=== PATIENT | female | born 1975 | race African-American/Black ===

== ENCOUNTER 2024-02-10 23:18 | Inpatient (IN) | payer OTHER, MEDICAID ==
[~2024-02-10] VITALS: Ht 170.2 cm; Wt 85.0 kg
[2024-02-10 23:39] VITALS: O2SAT 100
[2024-02-11] MEDS: KETOROLAC 15MG/ML VIAL IV ONE (00:37)
[2024-02-11] MEDS: LIDOCAINE 5% PATCH TOP ONE (00:37)
[2024-02-11 03:37] LABS: BASOPHILS % 1.1 % (0.0-2.0); DIFFERENTIAL COMMENT 0; EOSINOPHILS % 1.1 % (0.0-5.0); HEMATOCRIT. 33.3 % (36.0-48.0); HEMOGLOBIN. 10.8 g/dL (12.0-16.0); LYMPHOCYTES % 29.7 % (20.0-50.0); MEAN CORPUSCULAR HEMOGLOBIN 24.7 pg (28.0-32.0); MEAN CORPUSCULAR HGB CONC 32.3 g/dL (31.0-37.0); MEAN CORPUSCULAR VOLUME 76.5 fL (81.0-99.0); MEAN PLATELET VOLUME 9.4 fl (7.4-10.4); MONOCYTES % 4.6 % (2.0-8.0); NEUTROPHILS % 63.5 % (40.0-76.0); PLATELET 244 x1000/uL (130-400); RED BLOOD CELL COUNT 4.35 mill/uL (4.2-5.4); RED CELL DISTRIBUTION WIDTH 16.3 % (11.6-14.6)
[2024-02-11 03:47] VITALS: BP 170/81; PULSE 69; RESP 17; TEMP 36.55848; O2SAT 98
[2024-02-11 03:47] LABS: CHLORIDE 108 mEq/L (98-107); SODIUM 140 mEq/L (136-145)
[2024-02-11 03:48] LABS: CALCIUM 9.1 mg/dL (8.7-10.4); CARBON DIOXIDE 27 mEq/L (21-32)
[2024-02-11 03:53] LABS: CREATININE 0.8 mg/dL (0.6-1.0); GLUCOSE 137 mg/dL (70-105); UREA NITROGEN BLOOD 15 mg/dL (9-23)
[2024-02-11 04:28] LABS: TROPONIN I HIGH SENSITIVITY 96 ng/L (3.0-34)
[2024-02-11 04:54] LABS: TROPONIN I HIGH SENSITIVITY 96 ng/L (3.0-34)
[2024-02-11] MEDS ORDERED: IPRATROPIUM/ALBUTEROL 0.5-3(2.5)MG/3ML NEB NEB PRN (05:45)
[2024-02-11] MEDS ORDERED: HYDROCODONE/ACETAMINOPHEN 5/325MG TABLET PO PRN (05:45)
[2024-02-11] MEDS ORDERED: DOCUSATE SODIUM 100MG CAPSULE PO PRN (05:45)
[2024-02-11] MEDS ORDERED: ACETAMINOPHEN 325MG TABLET PO PRN (05:45)
[2024-02-11] MEDS ORDERED: CLONIDINE 0.1MG TABLET PO PRN (05:45)
[2024-02-11] MEDS ORDERED: DEXTROSE 50% WATER 50ML SYRINGE IV PRN (05:45)
[2024-02-11] MEDS ORDERED: ZOLPIDEM TARTRATE 5MG TABLET PO PRN (05:45)
[2024-02-11] MEDS ORDERED: ONDANSETRON HCL 4MG/2ML INJ IV PRN (05:45)
[2024-02-11] MEDS ORDERED: BLOOD SUGAR DIAGNOSTIC STRIP TEST SCH (06:45)
[2024-02-11] MEDS ORDERED: INSULIN LISPRO 100 UNITS/ML SUBCUT SCH (07:15)
[2024-02-11] MEDS ORDERED: ENOXAPARIN 40MG/0.4ML SYR SUBCUT SCH (09:00)
== END 2024-02-11 07:07 | disposition left against medical advice (07) | DRG 313 ==
LOC: ER 23:18 → 5WST 02-11 02:52
PROVIDERS: ADMIT Internal Medicine; ATTEND Internal Medicine
DX: R07.89 Other chest pain (principal); E11.9 Type 2 diabetes mellitus without complications; M54.2 Cervicalgia; I11.9 Hypertensive heart disease without heart failure; Z95.1 Presence of aortocoronary bypass graft; Z53.29 Procedure and treatment not carried out because of patient's decision for other reasons
CPT/HCPCS: 36415; 71045; 80048; 83880; 84484; 85025; 99285; J1885

== ENCOUNTER 2024-04-14 22:50 | Inpatient (IN) | payer OTHER, MEDICAID ==
[~2024-04-14] VITALS: Ht 165.1 cm; Wt 89.4 kg
[2024-04-14] MEDS: ALBUTEROL (0.083%) 2.5MG/3ML NEB HHN STA (00:30)
[2024-04-14] MEDS: LORAZEPAM 2MG/ML INJ IV ONE (23:20)
[2024-04-14 23:23] LABS: BASOPHILS % 1.3 % (0.0-2.0); DIFFERENTIAL COMMENT 0; EOSINOPHILS % 1.1 % (0.0-5.0); HEMOGLOBIN. 11.3 g/dL (12.0-16.0); LYMPHOCYTES % 25.6 % (20.0-50.0); MEAN CORPUSCULAR HEMOGLOBIN 24.2 pg (28.0-32.0); MEAN CORPUSCULAR HGB CONC 31.3 g/dL (31.0-37.0); MEAN CORPUSCULAR VOLUME 77.3 fL (81.0-99.0); MEAN PLATELET VOLUME 9.1 fl (7.4-10.4); MONOCYTES % 3.4 % (2.0-8.0); NEUTROPHILS % 68.6 % (40.0-76.0); PLATELET 352 x1000/uL (130-400); RED BLOOD CELL COUNT 4.65 mill/uL (4.2-5.4)
[2024-04-14 23:25] LABS: CHLORIDE 110 mEq/L (98-107); POTASSIUM 3.4 mEq/L (3.5-5.1); SODIUM 140 mEq/L (136-145)
[2024-04-14 23:26] LABS: CALCIUM 8.4 mg/dL (8.7-10.4); CARBON DIOXIDE 23 mEq/L (21-32)
[2024-04-14 23:31] LABS: CREATININE 0.9 mg/dL (0.6-1.0); GLUCOSE 228 mg/dL (70-105); UREA NITROGEN BLOOD 13 mg/dL (9-23)
[2024-04-14 23:49] LABS: TROPONIN I HIGH SENSITIVITY 54 ng/L (3.0-34)
[2024-04-15] VITALS (8 sets, daily range): PULSE 70–144; RESP 20–26; O2SAT 90–100
[2024-04-15] MEDS: MIDAZOLAM HCL 2 MG/2 ML VIAL IV NR (00:25)
[2024-04-15] MEDS: IPRATROPIUM BROMIDE (0.02%) 0.5MG/2.5ML NEB HHN STA (00:30)
[2024-04-15] MEDS ORDERED: MIDAZOLAM HCL 100 MG in DEXT 5% WATER 80 ML IV ONE (00:45)
[2024-04-15] MEDS: ROCURONIUM BROMIDE 10MG/ML VIAL 5ML IV ONE (01:27)
[2024-04-15] MEDS: CEFTRIAXONE 1GM/50ML 50 ML IV NR (01:46)
[2024-04-15] MEDS: MIDAZOLAM 100MG/100ML PREMIX IV PRN (01:47)
[2024-04-15] MEDS: PROPOFOL 10MG/ML 100ML 100 ML IV ONE (01:48)
[2024-04-15 02:19] LABS: BG BASE EXCESS -7.1 mmol/L (-2.0-3.0); BG CARBOXYHEMOGLOBIN 2.9 % (0.5-1.5); BG DEOXYHEMOGLOBIN 26.9 % (0.0-5.0); BG FRACTION INSPIRED OXYGEN 100; BG HCO3 ACT 20.2 mmol/L (21.0-28.0); BG METHEMOGLOBIN 0.3 % (0.5-1.5); BG OXYGEN SATURATION 72.2 % (94.0-98.0); BG OXYHEMOGLOBIN 69.9 % (94.0-98.0); BG PCO2 47.6 mmHg (32.0-45.0); BG PH 7.245 (7.350-7.450); BG PO2 44.8 mmHg (83.0-108.0); BG SAMPLE SITE LEFT RADIAL; BG TOTAL HEMOGLOBIN 13.2 g/dL (12.0-16.0); BG VENT MODE VENT - AC
[2024-04-15] MEDS: AZITHROMYCIN 500MG/250ML 250 ML IV NR (02:22)
[2024-04-15 02:35] LABS: ALANINE AMINOTRANSFERASE 24 IU/L (10-49); ALBUMIN 4.2 g/dL (3.2-4.8); ASPARTATE AMINOTRANSFERASE 21 IU/L (<34); BILIRUBIN TOTAL 0.4 mg/dL (0.1-1.0)
[2024-04-15 03:01] LABS: BILIRUBIN DIRECT < 0.1 mg/dL (<=3.0)
[2024-04-15 03:04] LABS: LACTIC ACID 3.6 mmol/L (0.4-2.0); TROPONIN I HIGH SENSITIVITY 231 ng/L (3.0-34)
[2024-04-15] MEDS ORDERED: ONDANSETRON HCL 4MG/2ML INJ IV PRN (03:45)
[2024-04-15] MEDS ORDERED: ACETAMINOPHEN 650MG/20.3ML UDC GT PRN (03:45)
[2024-04-15] MEDS ORDERED: POTASSIUM CHLORIDE 20 MEQ in DEXT 5% WATER 90 ML IV ONE (03:45)
[2024-04-15] MEDS ORDERED: PROPOFOL 10MG/ML 100ML 100 ML IV PRN (03:45)
[2024-04-15] MEDS ORDERED: IPRATROPIUM/ALBUTEROL 0.5-3(2.5)MG/3ML NEB HHN PRN (03:45)
[2024-04-15] MEDS ORDERED: LACTATED RINGERS 1,000 ML IV SCH (03:45)
[2024-04-15] MEDS ORDERED: DEXTROSE 50% WATER 50ML SYRINGE IV PRN (03:45)
[2024-04-15] MEDS ORDERED: IOHEXOL-350 100 ML BOTTLE ONE (03:59)
[2024-04-15] MEDS ORDERED: ENOXAPARIN 80MG/0.8ML SYR SUBCUT NR (04:30)
[2024-04-15] MEDS ORDERED: HEPARIN 25,000 UNITS PREMIX 250 ML IV SCH (04:45)
[2024-04-15] MEDS ORDERED: SODIUM CHLORIDE 10% FOR INH 15ML NEB INH NR (04:45)
[2024-04-15 05:10] LABS: CREATINE KINASE MB FRACTION 18.7 ng/mL (0.5-3.6)
[2024-04-15 05:12] LABS: PHOSPHORUS 3.7 mg/dL (2.5-4.9)
[2024-04-15 05:28] LABS: BASOPHILS % 0.2 % (0.0-2.0); EOSINOPHILS % 0.1 % (0.0-5.0); HEMATOCRIT. 33.7 % (36.0-48.0); HEMOGLOBIN. 10.7 g/dL (12.0-16.0); LYMPHOCYTES % 3.7 % (20.0-50.0); MEAN CORPUSCULAR HEMOGLOBIN 24.4 pg (28.0-32.0); MEAN CORPUSCULAR HGB CONC 31.8 g/dL (31.0-37.0); MEAN CORPUSCULAR VOLUME 76.7 fL (81.0-99.0); MONOCYTES % 3.3 % (2.0-8.0); NEUTROPHILS % 92.7 % (40.0-76.0); PLATELET 311 x1000/uL (130-400); RED BLOOD CELL COUNT 4.39 mill/uL (4.2-5.4); RED CELL DISTRIBUTION WIDTH 17.1 % (11.6-14.6); WHITE BLOOD COUNT 25.5 x1000/uL (4.5-11.0)
[2024-04-15 05:38] LABS: POTASSIUM 4.6 mEq/L (3.5-5.1)
[2024-04-15 05:39] LABS: CALCIUM 8.6 mg/dL (8.7-10.4)
[2024-04-15 05:40] LABS: DIFFERENTIAL COMMENT 1
[2024-04-15 05:42] LABS: IRON 19 ug/dL (50-170); PROTHROMBIN TIME 11.6 sec (9.6-11.0)
[2024-04-15 05:44] LABS: TOTAL IRON BINDING CAPACITY 303 ug/dl (250-425)
[2024-04-15 05:49] LABS: T4 FREE 1.11 ng/dL (0.89-1.76)
[2024-04-15 05:55] LABS: CREATININE 1.5 mg/dL (0.6-1.0)
[2024-04-15 07:24] LABS: CLARITY URINE CLEAR (CLEAR); COLOR URINE YELLOW (YELLOW); GLUCOSE URINE 3+ (NEGATIVE); KETONES URINE NEGATIVE (NEGATIVE); LEUKOCYTE ESTERASE URINE NEGATIVE (NEGATIVE); NITRITE URINE NEGATIVE (NEGATIVE); OCCULT BLOOD URINE 3+ (NEGATIVE); PH URINE 5.5 (4.5-8.0); PROTEIN URINE 2+ (NEGATIVE); SPECIFIC GRAVITY URINE 1.065 (1.005-1.030)
[2024-04-15 07:38] LABS: *AMPHETAMINES SCREEN URINE NEGATIVE (NEGATIVE); *BARBITURATES SCREEN URINE NEGATIVE (NEGATIVE); *BENZODIAZEPINES SCREEN URINE PRESUMPTIVE POSITIVE (NEGATIVE); *COCAINE SCREEN URINE NEGATIVE (NEGATIVE)
[2024-04-15 07:39] LABS: CANNABINOID URINE SCREEN PRESUMPTIVE POSITIVE (NEGATIVE); ECSTASY MDMA SCREEN URINE NEGATIVE (NEGATIVE); METHADONE URINE SCREEN NEGATIVE (NEGATIVE); OPIATES URINE SCREEN NEGATIVE (NEGATIVE); PHENCYCLIDINE URINE SCREEN NEGATIVE (NEGATIVE)
[2024-04-15 07:41] LABS: WBC URINE 0-2 /hpf (0-2)
[2024-04-15 07:42] LABS: AMMONIA < 17 uMol/L (<32)
[2024-04-15 07:42] LABS: BACTERIA URINE 1+; RBC URINE 15-25 /hpf (0-2); SQUAMOUS EPITHELIAL CELL URINE 1+ /lpf (RARE/1+); YEAST URINE NONE SEEN
[2024-04-15] MEDS: METHYLPREDNISOLONE SOD SUCC 40MG/ML (ACT-O-VIAL) IV SCH ×2 (07:42→22:45)
[2024-04-15] MEDS: PIPERACILLIN/TAZO 3.375G/50ML 50 ML IV SCH (07:42)
[2024-04-15] MEDS: PANTOPRAZOLE SODIUM 40 MG/VIAL IV SCH (07:43)
[2024-04-15] MEDS: KCL 20MEQ/100ML PREMIX 100 ML IV NR (07:43)
[2024-04-15] MEDS: SODIUM BICARBONATE 8.4% 50MEQ/50ML SYR IV NR (07:44)
[2024-04-15] MEDS: HEPARIN 60 UNITS/KG BOLUS IV SCH (08:21)
[2024-04-15] MEDS: IPRATROPIUM/ALBUTEROL 0.5-3(2.5)MG/3ML NEB HHN SCH (08:28)
[2024-04-15] MEDS: ACETYLCYSTEINE 200MG/ML 20% VIAL 4ML INH SCH (08:28)
[2024-04-15 09:27] LABS: BG BASE EXCESS 16.1 mmol/L (-2.0-3.0); BG CARBOXYHEMOGLOBIN 0.9 % (0.5-1.5); BG DEOXYHEMOGLOBIN 0.4 % (0.0-5.0); BG FRACTION INSPIRED OXYGEN 100; BG HCO3 ACT 39.6 mmol/L (21.0-28.0); BG METHEMOGLOBIN 0.3 % (0.5-1.5); BG OXYGEN SATURATION 99.6 % (94.0-98.0); BG OXYHEMOGLOBIN 98.4 % (94.0-98.0); BG PCO2 43.3 mmHg (32.0-45.0); BG PH 7.579 (7.350-7.450); BG PO2 252.2 mmHg (83.0-108.0); BG SAMPLE SITE RIGHT BRACHIAL; BG TOTAL HEMOGLOBIN 10.5 g/dL (12.0-16.0); BG VENT MODE VENT - AC
[2024-04-15] MEDS: HEPARIN 25,000 UNITS PREMIX 250 ML IV SCH (09:33)
[2024-04-15] MEDS: LACTATED RINGERS 1,000 ML IV NR (11:19)
[2024-04-15] MEDS: BLOOD SUGAR DIAGNOSTIC STRIP TEST SCH (11:49)
[2024-04-15] MEDS: INSULIN LISPRO 100 UNITS/ML SUBCUT SCH (11:50)
[2024-04-15] MEDS: ASPIRIN 81MG TABLET NG SCH (11:59)
[2024-04-15 16:08] LABS: CREATINE KINASE MB FRACTION 87.5 ng/mL (0.5-3.6)
[2024-04-15] MEDS: HEPARIN BOLUS PRN aPTT 30-44 IV (17:13)
[2024-04-15] MEDS: PROPOFOL 10MG/ML 100ML 100 ML IV PRN (18:36)
[2024-04-15] MEDS: LABETALOL 5MG/ML 4ML INJ IV NR (18:54)
[2024-04-15] MEDS ORDERED: ATORVASTATIN CALCIUM 20MG TABLET NG SCH (21:00)
[2024-04-16] VITALS (50 sets, daily range): BP systolic 112–173; BP diastolic 30–152; PULSE 59–97; RESP 18–29; TEMP 36.3918–36.50292; O2SAT 95–100
[2024-04-16] MEDS: HYDRALAZINE 20MG/ML VIAL IV NR (00:50)
[2024-04-16 05:17] LABS: HEMATOCRIT. 30.7 % (36.0-48.0); HEMOGLOBIN. 10.1 g/dL (12.0-16.0); MEAN CORPUSCULAR HGB CONC 32.9 g/dL (31.0-37.0); MEAN CORPUSCULAR VOLUME 76.1 fL (81.0-99.0); MEAN PLATELET VOLUME 9.1 fl (7.4-10.4); PLATELET 264 x1000/uL (130-400); RED BLOOD CELL COUNT 4.03 mill/uL (4.2-5.4); RED CELL DISTRIBUTION WIDTH 17.5 % (11.6-14.6); WHITE BLOOD COUNT 20.2 x1000/uL (4.5-11.0)
[2024-04-16 05:24] LABS: CHLORIDE 110 mEq/L (98-107); POTASSIUM 4.3 mEq/L (3.5-5.1); SODIUM 141 mEq/L (136-145)
[2024-04-16 05:25] LABS: CALCIUM 8.7 mg/dL (8.7-10.4); CARBON DIOXIDE 26 mEq/L (21-32)
[2024-04-16 05:30] LABS: GLUCOSE 215 mg/dL (70-105); TRIGLYCERIDE 135 mg/dL (0-150); UREA NITROGEN BLOOD 21 mg/dL (9-23)
[2024-04-16 05:31] LABS: LDL CHOLESTEROL 154 mg/dL (5-100)
[2024-04-16 05:32] LABS: CHOLESTEROL 206 mg/dL (<200); HDL CHOLESTEROL 32 mg/dL (>65)
[2024-04-16 05:34] LABS: THYROID STIMULATING HORMONE 0.73 uIU/mL (0.55-4.78)
[2024-04-16 05:35] LABS: T4 FREE 0.99 ng/dL (0.89-1.76)
[2024-04-16 05:36] LABS: DIFFERENTIAL COMMENT 1
[2024-04-16] MEDS ORDERED: AZITHROMYCIN 500MG/250ML 250 ML IV SCH (06:00)
[2024-04-16 09:22] LABS: ANISOCYTOSIS 1+; MICROCYTOSIS 1+; PLATELET ESTIMATE NORMAL
[2024-04-16 11:14] LABS: BG BASE EXCESS 0.3 mmol/L (-2.0-3.0); BG CARBOXYHEMOGLOBIN 0.7 % (0.5-1.5); BG DEOXYHEMOGLOBIN 0.4 % (0.0-5.0); BG FRACTION INSPIRED OXYGEN 100; BG HCO3 ACT 25.4 mmol/L (21.0-28.0); BG METHEMOGLOBIN 0.3 % (0.5-1.5); BG OXYGEN SATURATION 99.6 % (94.0-98.0); BG OXYHEMOGLOBIN 98.6 % (94.0-98.0); BG PCO2 42.7 mmHg (32.0-45.0); BG PH 7.392 (7.350-7.450); BG PO2 205.8 mmHg (83.0-108.0); BG SAMPLE SITE RIGHT BRACHIAL; BG TOTAL HEMOGLOBIN 11.2 g/dL (12.0-16.0); BG VENT MODE VENT - AC
[2024-04-16] MEDS: PROPOFOL 10MG/ML 100ML 100 ML IV PRN (12:40)
[2024-04-16] MEDS: ATORVASTATIN CALCIUM 40MG TABLET NG SCH (21:01)
[2024-04-17] VITALS (72 sets, daily range): BP systolic 119–163; BP diastolic 63–125; PULSE 49–98; RESP 13–24; TEMP 36.16956–36.6696; O2SAT 95–100
[2024-04-17 05:43] LABS: HEMOGLOBIN 9.5 g/dL (12.0-16.0); MEAN CORPUSCULAR HEMOGLOBIN 24.9 pg (28.0-32.0); MEAN CORPUSCULAR HGB CONC 31.7 g/dL (31.0-37.0); MEAN CORPUSCULAR VOLUME 78.4 fL (81.0-99.0); PLATELET 235 x1000/uL (130-400); RED BLOOD CELL COUNT 3.82 mill/uL (4.2-5.4); RED CELL DISTRIBUTION WIDTH 17.2 % (11.6-14.6); WHITE BLOOD COUNT 16.9 x1000/uL (4.5-11.0)
[2024-04-17] MEDS: AZITHROMYCIN 500MG/250ML 250 ML IV SCH (05:57)
[2024-04-17 06:17] LABS: CARBON DIOXIDE 25 mEq/L (21-32); CHLORIDE 109 mEq/L (98-107); POTASSIUM 4.6 mEq/L (3.5-5.1); SODIUM 142 mEq/L (136-145)
[2024-04-17 06:19] LABS: CALCIUM 8.9 mg/dL (8.7-10.4)
[2024-04-17 06:23] LABS: CREATININE 0.8 mg/dL (0.6-1.0); GLUCOSE 184 mg/dL (70-105); UREA NITROGEN BLOOD 21 mg/dL (9-23)
[2024-04-17] MEDS ORDERED: PROPOFOL 10MG/ML 100ML 100 ML IV PRN (06:45)
[2024-04-17 08:37] LABS: BG BASE EXCESS -1.1 mmol/L (-2.0-3.0); BG CARBOXYHEMOGLOBIN 0.3 % (0.5-1.5); BG DEOXYHEMOGLOBIN 3.1 % (0.0-5.0); BG FRACTION INSPIRED OXYGEN 40; BG HCO3 ACT 23.7 mmol/L (21.0-28.0); BG METHEMOGLOBIN 0.3 % (0.5-1.5); BG OXYGEN SATURATION 96.9 % (94.0-98.0); BG OXYHEMOGLOBIN 96.3 % (94.0-98.0); BG PCO2 39.8 mmHg (32.0-45.0); BG PH 7.393 (7.350-7.450); BG PO2 92.5 mmHg (83.0-108.0); BG SAMPLE SITE RIGHT BRACHIAL; BG TOTAL HEMOGLOBIN 10.6 g/dL (12.0-16.0); BG VENT MODE VENT - AC
[2024-04-17] MEDS: LORATADINE 10MG TABLET PO SCH (11:48)
[2024-04-17] MEDS: FAMOTIDINE 20MG TABLET PO SCH (11:48)
[2024-04-17] MEDS: MONTELUKAST SODIUM 10MG TABLET PO SCH (11:48)
[2024-04-17] MEDS: PROPOFOL 10MG/ML 100ML 100 ML IV PRN (14:18)
[2024-04-17 17:14] LABS: TROPONIN I HIGH SENSITIVITY 5721 ng/L (3.0-34)
[2024-04-17] MEDS: HEPARIN BOLUS PRN aPTT <30 IV (18:01)
[2024-04-18] VITALS (87 sets, daily range): BP systolic 116–181; BP diastolic 70–118; PULSE 45–91; RESP 12–26; TEMP 36.114–37.1; O2SAT 94–100
[2024-04-18 08:35] LABS: BASOPHILS % 0.2 % (0.0-2.0); DIFFERENTIAL COMMENT 0; HEMOGLOBIN. 9.6 g/dL (12.0-16.0); LYMPHOCYTES % 10.3 % (20.0-50.0); MEAN CORPUSCULAR HEMOGLOBIN 24.6 pg (28.0-32.0); MEAN CORPUSCULAR HGB CONC 31.8 g/dL (31.0-37.0); MEAN CORPUSCULAR VOLUME 77.3 fL (81.0-99.0); MEAN PLATELET VOLUME 9.3 fl (7.4-10.4); MONOCYTES % 4.1 % (2.0-8.0); NEUTROPHILS % 85.4 % (40.0-76.0); PLATELET 229 x1000/uL (130-400); RED BLOOD CELL COUNT 3.88 mill/uL (4.2-5.4); RED CELL DISTRIBUTION WIDTH 17.6 % (11.6-14.6); WHITE BLOOD COUNT 13.6 x1000/uL (4.5-11.0)
[2024-04-18] MEDS ORDERED: IODIXANOL 320MG/ML 100 ML BOTTLE IV ONE (08:35)
[2024-04-18] MEDS ORDERED: LIDOCAINE HCL 1% 20ML VIAL ONE (08:35)
[2024-04-18] MEDS ORDERED: HEPARIN 1000 UNITS/ML 10ML ONE (08:35)
[2024-04-18 08:47] LABS: CALCIUM 8.7 mg/dL (8.7-10.4); CARBON DIOXIDE 24 mEq/L (21-32); CHLORIDE 111 mEq/L (98-107); POTASSIUM 4.5 mEq/L (3.5-5.1); SODIUM 143 mEq/L (136-145)
[2024-04-18 08:51] LABS: CREATININE 0.8 mg/dL (0.6-1.0); GLUCOSE 199 mg/dL (70-105); TRIGLYCERIDE 233 mg/dL (0-150)
[2024-04-18 08:53] LABS: UREA NITROGEN BLOOD 22 mg/dL (9-23)
[2024-04-18 09:00] LABS: HCG SCREEN NEGATIVE
[2024-04-18] MEDS: MIDAZOLAM 100MG/100ML PMX 100 ML IV PRN (10:00)
[2024-04-18] MEDS: PROPOFOL 10MG/ML 100ML 100 ML IV PRN (10:06)
[2024-04-18] MEDS ORDERED: LIDOCAINE HCL 1% 10 MG/ML 10ML VIAL ONE (11:11)
[2024-04-18] MEDS: HYDRALAZINE 20MG/ML VIAL IV NR (22:34)
[2024-04-19] VITALS (54 sets, daily range): BP systolic 108–196; BP diastolic 71–147; PULSE 60–111; RESP 10–31; TEMP 36.2–37.1; O2SAT 79–100
[2024-04-19] MEDS: DEXMEDETOMIDINE 400 MCG/100 ML 100 ML IV PRN (00:51)
[2024-04-19 00:55] LABS: BG BASE EXCESS -2.4 mmol/L (-2.0-3.0); BG CARBOXYHEMOGLOBIN 0.3 % (0.5-1.5); BG DEOXYHEMOGLOBIN 4.8 % (0.0-5.0); BG FRACTION INSPIRED OXYGEN 100; BG METHEMOGLOBIN 0.3 % (0.5-1.5); BG OXYGEN SATURATION 95.2 % (94.0-98.0); BG OXYHEMOGLOBIN 94.6 % (94.0-98.0); BG PCO2 54.7 mmHg (32.0-45.0); BG PH 7.277 (7.350-7.450); BG PO2 89.7 mmHg (83.0-108.0); BG SAMPLE SITE RIGHT BRACHIAL; BG VENT MODE MASK - NRB
[2024-04-19] MEDS: AMLODIPINE 5MG TABLET PO SCH (08:56)
[2024-04-19 16:36] LABS: DIFFERENTIAL COMMENT 1; HEMATOCRIT. 32.8 % (36.0-48.0); HEMOGLOBIN. 10.1 g/dL (12.0-16.0); MEAN CORPUSCULAR HEMOGLOBIN 23.8 pg (28.0-32.0); MEAN CORPUSCULAR VOLUME 76.8 fL (81.0-99.0); MEAN PLATELET VOLUME 9.9 fl (7.4-10.4); PLATELET 235 x1000/uL (130-400); RED BLOOD CELL COUNT 4.27 mill/uL (4.2-5.4); RED CELL DISTRIBUTION WIDTH 17.3 % (11.6-14.6); WHITE BLOOD COUNT 16.5 x1000/uL (4.5-11.0)
[2024-04-19 16:44] LABS: CARBON DIOXIDE 26 mEq/L (21-32); CHLORIDE 107 mEq/L (98-107); POTASSIUM 4.1 mEq/L (3.5-5.1); SODIUM 141 mEq/L (136-145)
[2024-04-19 16:49] LABS: GLUCOSE 242 mg/dL (70-105)
[2024-04-19 16:50] LABS: CREATININE 0.8 mg/dL (0.6-1.0); UREA NITROGEN BLOOD 24 mg/dL (9-23)
[2024-04-19 16:51] LABS: ALANINE AMINOTRANSFERASE 28 IU/L (10-49); ALBUMIN 3.7 g/dL (3.2-4.8); ASPARTATE AMINOTRANSFERASE 21 IU/L (<34)
[2024-04-19 16:52] LABS: BILIRUBIN TOTAL 0.4 mg/dL (0.1-1.0); PHOSPHORUS 2.7 mg/dL (2.5-4.9)
[2024-04-19] MEDS: PREDNISONE 20MG TABLET PO SCH (17:47)
[2024-04-19 20:42] LABS: BG BASE EXCESS 0.1 mmol/L (-2.0-3.0); BG CARBOXYHEMOGLOBIN 0.1 % (0.5-1.5); BG DEOXYHEMOGLOBIN 9.1 % (0.0-5.0); BG FRACTION INSPIRED OXYGEN 21; BG HCO3 ACT 23.2 mmol/L (21.0-28.0); BG METHEMOGLOBIN 0.3 % (0.5-1.5); BG OXYGEN SATURATION 90.9 % (94.0-98.0); BG OXYHEMOGLOBIN 90.5 % (94.0-98.0); BG PCO2 32.6 mmHg (32.0-45.0); BG PO2 59.1 mmHg (83.0-108.0); BG SAMPLE SITE RIGHT BRACHIAL; BG TOTAL HEMOGLOBIN 12.2 g/dL (12.0-16.0); BG VENT MODE ROOM AIR
[2024-04-19 21:21] LABS: HYPOCHROMASIA 1+; MICROCYTOSIS 1+; PLATELET ESTIMATE NORMAL
[2024-04-19] MEDS: LORAZEPAM 2MG/ML INJ IV NR (21:31)
[2024-04-20] VITALS (55 sets, daily range): BP systolic 128–173; BP diastolic 73–125; PULSE 53–84; RESP 13–26; TEMP 36.7–37.2; O2SAT 75–100
[2024-04-20] MEDS: LABETALOL 5MG/ML 4ML INJ IV PRN (04:17)
[2024-04-20 05:34] LABS: HEMATOCRIT 31.8 % (36.0-48.0); MEAN CORPUSCULAR HEMOGLOBIN 24.2 pg (28.0-32.0); MEAN CORPUSCULAR HGB CONC 31.3 g/dL (31.0-37.0); MEAN CORPUSCULAR VOLUME 77.3 fL (81.0-99.0); PLATELET 213 x1000/uL (130-400); RED BLOOD CELL COUNT 4.12 mill/uL (4.2-5.4); RED CELL DISTRIBUTION WIDTH 17.4 % (11.6-14.6); WHITE BLOOD COUNT 16.6 x1000/uL (4.5-11.0)
[2024-04-20 05:39] LABS: CHLORIDE 110 mEq/L (98-107); SODIUM 143 mEq/L (136-145)
[2024-04-20 05:40] LABS: CARBON DIOXIDE 24 mEq/L (21-32)
[2024-04-20 05:41] LABS: CALCIUM 8.5 mg/dL (8.7-10.4)
[2024-04-20 05:45] LABS: CREATININE 0.7 mg/dL (0.6-1.0); GLUCOSE 234 mg/dL (70-105)
[2024-04-20 05:46] LABS: UREA NITROGEN BLOOD 23 mg/dL (9-23)
[2024-04-20 05:48] LABS: PHOSPHORUS 3.1 mg/dL (2.5-4.9)
[2024-04-20] MEDS: AZITHROMYCIN 500 MG TABLET PO SCH (08:33)
[2024-04-20] MEDS ORDERED: HYDROXYZINE 25MG TABLET PO PRN (13:00)
[2024-04-20] MEDS ORDERED: PIPERACILLIN/TAZO 3.375G/50ML 50 ML IV SCH (22:00)
== END 2024-04-20 17:09 | disposition left against medical advice (07) | DRG 871 ==
LOC: ER 22:50 → CVICU 04-16 13:34
PROVIDERS: ADMIT Internal Medicine; ATTEND Internal Medicine
PROC: 0BH17EZ Insertion of Endotracheal Airway into Trachea, Via Natural or Artificial Opening (ICD-10-PCS; principal; 2024-04-15)
PROC: 5A1945Z Respiratory Ventilation, 24-96 Consecutive Hours (ICD-10-PCS; 2024-04-15)
PROC: 06HY33Z Insertion of Infusion Device into Lower Vein, Percutaneous Approach (ICD-10-PCS; 2024-04-15)
PROC: B54NZZA Ultrasonography of Left Upper Extremity Veins, Guidance (ICD-10-PCS; 2024-04-15)
PROC: 02HV33Z Insertion of Infusion Device into Superior Vena Cava, Percutaneous Approach (ICD-10-PCS; 2024-04-18)
PROC: B548ZZA Ultrasonography of Superior Vena Cava, Guidance (ICD-10-PCS; 2024-04-18)
PROC: 5A0935A Assistance with Respiratory Ventilation, Less than 24 Consecutive Hours, High Flow/Velocity Cannula (ICD-10-PCS; 2024-04-19)
DX: A41.9 Sepsis, unspecified organism (principal); I21.4 Non-ST elevation (NSTEMI) myocardial infarction; J96.01 Acute respiratory failure with hypoxia; R65.21 Severe sepsis with septic shock; I50.21 Acute systolic (congestive) heart failure; N17.9 Acute kidney failure, unspecified; E87.4 Mixed disorder of acid-base balance; E78.00 Pure hypercholesterolemia, unspecified; Z53.29 Procedure and treatment not carried out because of patient's decision for other reasons; D50.9 Iron deficiency anemia, unspecified; E66.01 Morbid (severe) obesity due to excess calories; Z68.29 Body mass index [BMI] 29.0-29.9, adult; E87.6 Hypokalemia; E11.9 Type 2 diabetes mellitus without complications; I25.10 Atherosclerotic heart disease of native coronary artery without angina pectoris; Z95.1 Presence of aortocoronary bypass graft; J45.909 Unspecified asthma, uncomplicated; I11.0 Hypertensive heart disease with heart failure; Z79.82 Long term (current) use of aspirin; Z79.4 Long term (current) use of insulin; Z79.899 Other long term (current) drug therapy; Z91.199 Patient's noncompliance with other medical treatment and regimen due to unspecified reason
CPT/HCPCS: 31500; 36415; 36556; 36573; 36600; 71045; 71275; 80048; 80053; 80061; 80076; 80305; 81003; 82140; 82375; 82550; 82553; 82728; 82805; 82962; 83036; 83605; 83735; 83880; 84100; 84145; 84439; 84443; 84478; 84484; 84703; 85025; 85027; 85379; 86850; 86900; 87070; 93005; 93306; 93970; 94003; 94070; 94640; 94664; 99291; A4606; C1725; C1769; J0360; J0456; J0696; J1644; J1815; J2003; J2060; J2250; J2405; J2470; J2543; J2704; J2920; J3480; J3490; J7060; J7131; J7512; Q9957; Q9967

== ENCOUNTER 2024-05-08 08:59 | Inpatient (IN) | payer OTHER, MEDICAID ==
[2024-05-08] VITALS (7 sets, daily range): RESP 26–40; O2SAT 97
[~2024-05-08] VITALS: Ht 165.1 cm; Wt 96.2 kg
[2024-05-08] MEDS: IPRATROPIUM/ALBUTEROL 0.5-3(2.5)MG/3ML NEB HHN SCH (01:03)
[2024-05-08 09:55] LABS: BASOPHILS % 0.3 % (0.0-2.0); DIFFERENTIAL COMMENT 0; EOSINOPHILS % 0.5 % (0.0-5.0); HEMOGLOBIN. 10.9 g/dL (12.0-16.0); LYMPHOCYTES % 22.2 % (20.0-50.0); MEAN CORPUSCULAR HEMOGLOBIN 23.6 pg (28.0-32.0); MEAN CORPUSCULAR HGB CONC 30.4 g/dL (31.0-37.0); MEAN CORPUSCULAR VOLUME 77.7 fL (81.0-99.0); MEAN PLATELET VOLUME 9.3 fl (7.4-10.4); MONOCYTES % 3.6 % (2.0-8.0); NEUTROPHILS % 73.4 % (40.0-76.0); PLATELET 463 x1000/uL (130-400); RED BLOOD CELL COUNT 4.63 mill/uL (4.2-5.4); RED CELL DISTRIBUTION WIDTH 18.7 % (11.6-14.6); WHITE BLOOD COUNT 15.5 x1000/uL (4.5-11.0)
[2024-05-08 10:04] LABS: CALCIUM 9.1 mg/dL (8.7-10.4); CARBON DIOXIDE 24 mEq/L (21-32); CHLORIDE 103 mEq/L (98-107); POTASSIUM 5.3 mEq/L (3.5-5.1); SODIUM 137 mEq/L (136-145)
[2024-05-08 10:09] LABS: CREATININE 1.2 mg/dL (0.6-1.0)
[2024-05-08 10:10] LABS: GLUCOSE 339 mg/dL (70-105); UREA NITROGEN BLOOD 13 mg/dL (9-23)
[2024-05-08 10:11] LABS: TROPONIN I HIGH SENSITIVITY 20 ng/L (3.0-34)
[2024-05-08 11:46] LABS: INFLUENZA TYPE A Presumptive Negative (Pres. Neg.); INFLUENZA TYPE B Presumptive Negative (Pres. Neg.)
[2024-05-08 11:47] LABS: RESPIRATORY SYNCYTIAL VIRUS Not Detected (Not Detectd)
[2024-05-08] MEDS ORDERED: AZITHROMYCIN 500MG/250ML 250 ML IV STA (12:24)
[2024-05-08] MEDS: CEFTRIAXONE 1GM/50ML 50 ML IV ONE (13:15)
[2024-05-08] MEDS ORDERED: HYDRALAZINE HCL 25MG TABLET PO PRN (13:30)
[2024-05-08] MEDS ORDERED: ACETAMINOPHEN 325MG TABLET PO PRN ×2 (13:30)
[2024-05-08] MEDS ORDERED: BISACODYL 5MG TABLET PO PRN (13:30)
[2024-05-08] MEDS ORDERED: ONDANSETRON HCL 4MG/2ML INJ IV PRN (13:30)
[2024-05-08] MEDS ORDERED: MAGNESIUM HYDROXIDE 400MG/5ML 30ML UDC PO PRN (13:30)
[2024-05-08] MEDS ORDERED: ACETAMINOPHEN WITH CODEINE 300/30MG TABLET PO PRN (13:30)
[2024-05-08] MEDS ORDERED: IPRATROPIUM/ALBUTEROL 0.5-3(2.5)MG/3ML NEB HHN PRN (13:30)
[2024-05-08] MEDS: AMLODIPINE 5MG TABLET PO SCH (13:42)
[2024-05-08] MEDS ORDERED: NALOXONE HCL 0.4MG/ML VIAL IV PRN (13:45)
[2024-05-08] MEDS: AZITHROMYCIN 500MG/250ML 250 ML IV NR (14:00)
[2024-05-08 18:45] LABS: TROPONIN I HIGH SENSITIVITY 39 ng/L (3.0-34)
[2024-05-08 20:26] LABS: TROPONIN I HIGH SENSITIVITY 37 ng/L (3.0-34)
[2024-05-08] MEDS: MORPHINE SULFATE 2 MG/ML INJ (NOT FOR IM USE) IV PRN (21:17)
[2024-05-09 01:03] VITALS: RESP 26
[2024-05-09] MEDS: HEPARIN 5000 UNITS/ML VIAL SUBCUT SCH (02:04)
[2024-05-09 03:31] VITALS: BP 152/78; PULSE 86; RESP 20; TEMP 36.8
[2024-05-09 04:55] VITALS: RESP 26
[2024-05-09 07:46] VITALS: RESP 22
[2024-05-09 08:08] VITALS: BP 143/73; PULSE 79; RESP 17; TEMP 36.2; O2SAT 95
[2024-05-09] MEDS: ASPIRIN 81MG TABLET PO SCH (09:48)
[2024-05-09] MEDS: FUROSEMIDE 40MG/4ML VIAL IVP SCH (09:48)
[2024-05-09 10:00] VITALS: BP 132/72; PULSE 77; RESP 20; O2SAT 100
[2024-05-09] MEDS ORDERED: DEXTROSE 50% WATER 50ML SYRINGE IV PRN (10:15)
[2024-05-09] MEDS ORDERED: BLOOD SUGAR DIAGNOSTIC STRIP TEST SCH (12:30)
[2024-05-09] MEDS ORDERED: INSULIN LISPRO 100 UNITS/ML SUBCUT SCH (13:00)
[2024-05-09] MEDS ORDERED: AZITHROMYCIN 500MG/250ML 250 ML IV SCH ×2 (14:00)
[2024-05-09] MEDS ORDERED: CEFTRIAXONE 1GM/50ML 50 ML IV SCH (15:00)
== END 2024-05-09 11:30 | disposition left against medical advice (07) | DRG 190 ==
LOC: ER 08:59 → 5EST 13:12 → EDBEDREQTM 13:20 → EDBEDREQ 13:20
PROVIDERS: ADMIT Internal Medicine; ATTEND Internal Medicine
PROC: 5A09357 Assistance with Respiratory Ventilation, Less than 24 Consecutive Hours, Continuous Positive Airway Pressure (ICD-10-PCS; principal; 2024-05-08)
PROC: 5A09357 Assistance with Respiratory Ventilation, Less than 24 Consecutive Hours, Continuous Positive Airway Pressure (ICD-10-PCS; 2024-05-09)
DX: J44.0 Chronic obstructive pulmonary disease with (acute) lower respiratory infection (principal); J18.9 Pneumonia, unspecified organism; E11.9 Type 2 diabetes mellitus without complications; I11.9 Hypertensive heart disease without heart failure; E78.00 Pure hypercholesterolemia, unspecified; Z20.822 Contact with and (suspected) exposure to COVID-19; Z53.29 Procedure and treatment not carried out because of patient's decision for other reasons; Z87.891 Personal history of nicotine dependence; Z79.899 Other long term (current) drug therapy; I25.2 Old myocardial infarction
CPT/HCPCS: 36415; 71045; 80048; 83605; 83880; 84484; 85025; 87420; 87426; 87804; 93005; 94070; 94640; 94660; 99291; J0456; J0696; J1644; J1940; J2270